=== PATIENT | male | born 1980 | race Two or more races ===

== ENCOUNTER 2020-12-14 10:59 | Emergency (ER) | payer SELFPAY ==
[~2020-12-14] VITALS: Ht 167.6 cm; Wt 100.0 kg
[2020-12-14] MEDS ORDERED: IBUPROFEN 600 MG TABLET PO ONE (11:45)
[2020-12-14 12:40] VITALS: BP 142/87
== END 2020-12-14 13:20 | disposition home or self-care (01) ==
LOC: EMS 11:04
DX: S46.811A Strain of other muscles, fascia and tendons at shoulder and upper arm level, right arm, initial encounter (principal)
CPT/HCPCS: 99283

== ENCOUNTER 2022-01-30 14:32 | Emergency (ER) | payer MEDICAID ==
[~2022-01-30] VITALS: Ht 170.2 cm; Wt 99.0 kg
[2022-01-30] MEDS ORDERED: BACLOFEN 10 MG TABLET PO ONE (16:45)
[2022-01-30] MEDS ORDERED: KETOROLAC TROMETHAMINE 60 MG/2 ML VIAL IM ONE (16:45)
[2022-01-30] MEDS ORDERED: HYDROCODONE/ACETAMINOPHEN 5-325 MG TABLET PO ONE (16:45)
[2022-01-30] MEDS ORDERED: HYDR-4723 PO (17:58)
[2022-01-30] MEDS ORDERED: IBUP-1554 PO (17:58)
[2022-01-30] MEDS ORDERED: BACL10TA PO (17:58)
[2022-01-30 18:08] VITALS: BP 142/78
== END 2022-01-30 18:16 | disposition home or self-care (01) ==
LOC: EMS 14:35
DX: S13.4XXA Sprain of ligaments of cervical spine, initial encounter (principal); X58.XXXA Exposure to other specified factors, initial encounter; Y93.89 Activity, other specified; Y92.89 Other specified places as the place of occurrence of the external cause; Y99.8 Other external cause status
CPT/HCPCS: 70450; 72125; 96372; 99284; J1885